=== PATIENT | female | born 1985 | race Caucasian/White ===

== ENCOUNTER 2017-07-23 07:04 | Inpatient (IN) | payer MEDICAID ==
[~2017-07-23] VITALS: Ht 160 cm; Wt 59.3 kg
[~2017-07-23 07:04] MED LIST: INSU100C5 SQ-INSULIN; INSULIN LONG ACTING SQ; LONG ACTING INSULIN; METF500T9 PO; NPH,100V5 SC; [UNRECOGNIZED DRUG - CODE] SC
[2017-07-23] MEDS ORDERED: ONDANSETRON 2MG/ML, 2ML IVPush ONE ×2 (07:30→08:30)
[2017-07-23] MEDS ORDERED: SODIUM CHLORIDE FLUSH 10ML SYR IVF ONE (07:30)
[2017-07-23] MEDS ORDERED: SODIUM CHLORIDE 0.9% 1,000ML IVBOLUS ONE ×2 (07:30→08:30)
[2017-07-23 07:45] LABS: HEMATOCRIT 49.1 % (34.6-47.8); HEMOGLOBIN 16.2 g/dL (11.7-16.4); WHITE BLOOD COUNT 10.8 x10^3/uL (3.4-10)
[2017-07-23] MEDS ORDERED: ONDANSETRON 2MG/ML, 2ML ONE ×2 (07:48→09:37)
[2017-07-23 07:53] LABS: FIO2 ROOM AIR %
[2017-07-23 07:55] LABS: PH, VENOUS 7.038 pH (7.320-7.420)
[2017-07-23 07:57] LABS: BLOOD UREA NITROGEN 15 mg/dL (7-18)
[2017-07-23] MEDS ORDERED: INSU100V8 SQ (08:10)
[2017-07-23] MEDS ORDERED: INSU100I18 SQ-INSULIN (08:12)
[2017-07-23] MEDS ORDERED: SODIUM CHLORIDE 0.9% 1,000 ML IV ONE (09:25)
[2017-07-23] MEDS ORDERED: REGULAR INSULIN 62.5 UNITS in SODIUM CHLORIDE 0.9% 249.375 ML IV PRN (09:30)
[2017-07-23] MEDS ORDERED: SODIUM CHLORIDE FLUSH 10ML SYR IVF PRN (09:30)
[2017-07-23 10:31] LABS: PATH.CAST-FLAG NOT PRESENT; SPERM-FLAG NOT PRESENT; SRC-FLAG NOT PRESENT; XTAL-FLAG NOT PRESENT; YLC-FLAG NOT PRESENT
[2017-07-23] MEDS ORDERED: POLYETHYLENE GLYCOL 17 GM PACKET PO PRN (11:30)
[2017-07-23] MEDS ORDERED: ONDANSETRON 2MG/ML, 2ML IVPush PRN (11:30)
[2017-07-23] MEDS ORDERED: DOCUSATE 100 MG CAPSULE PO PRN (11:30)
[2017-07-23] MEDS: SODIUM CHLORIDE 0.9% 1,000 ML IV SCH ×2 (11:30→18:10)
[2017-07-23] MEDS ORDERED: BISACODYL 10 MG SUPP PR PRN (11:30)
[2017-07-23] MEDS: ACETAMINOPHEN 325 MG TABLET PO PRN ×2 (11:37→19:47)
[2017-07-23] MEDS: ENOXAPARIN 40 MG/0.4 ML SQ SCH (12:25)
[2017-07-23] MEDS: FAMOTIDINE 20 MG/2 ML IVPush SCH ×2 (12:25→21:41)
[2017-07-23 12:40] LABS: BLOOD UREA NITROGEN 14 mg/dL (7-18)
[2017-07-23 13:11] VITALS: BP 116/88
[2017-07-23] MEDS: D5%-0.45% NACL 1,000 ML IV PRN ×2 (14:00→21:40)
[2017-07-23] MEDS ORDERED: D5%-0.45% NACL 1,000 ML IV PRN (14:00)
[2017-07-23 15:41] LABS: BLOOD UREA NITROGEN 11 mg/dL (7-18)
[2017-07-23] MEDS ORDERED: KETOROLAC 30 MG/1 ML IV ONE (16:00)
[2017-07-23 19:51] LABS: BLOOD UREA NITROGEN 8 mg/dL (7-18)
[2017-07-23] MEDS: REGULAR INSULIN 62.5 UNITS in SODIUM CHLORIDE 0.9% 249.375 ML IV PRN (21:40)
[2017-07-24 00:19] LABS: BLOOD UREA NITROGEN 9 mg/dL (7-18)
[2017-07-24] MEDS: SODIUM CHLORIDE 0.9% 1,000 ML IV SCH (00:50)
[2017-07-24 04:08] LABS: BLOOD UREA NITROGEN 7 mg/dL (7-18)
[2017-07-24 07:24] VITALS: BP 102/72
[2017-07-24 08:30] LABS: BLOOD UREA NITROGEN 6 mg/dL (7-18)
[2017-07-24] MEDS: ENOXAPARIN 40 MG/0.4 ML SQ SCH (11:30)
[2017-07-24] MEDS: ASA/APAP/ CAFFEINE TABLET PO PRN ×2 (12:03→17:46)
[2017-07-24] MEDS ORDERED: D5%-0.45% NACL 1,000 ML IV PRN (14:00)
[2017-07-24] MEDS ORDERED: POLYETHYLENE GLYCOL 17 GM PACKET PO PRN (15:30)
[2017-07-24] MEDS ORDERED: DOCUSATE 100 MG CAPSULE PO PRN (15:30)
[2017-07-24] MEDS ORDERED: BISACODYL 10 MG SUPP PR PRN (15:30)
[2017-07-24] MEDS ORDERED: ACETAMINOPHEN 325 MG TABLET PO PRN (15:30)
[2017-07-24] MEDS ORDERED: ONDANSETRON 2MG/ML, 2ML IVPush PRN (15:30)
[2017-07-24 16:59] LABS: BLOOD UREA NITROGEN 4 mg/dL (7-18)
[2017-07-24] MEDS ORDERED: POTASSIUM PHOSPHATE 44 MEQ in SODIUM CHLORIDE 0.9% 500 ML IV SCH (17:30)
[2017-07-24] MEDS ORDERED: MAGNESIUM SULFATE PMX 4GM/100M 100 ML IV ONE (17:30)
[2017-07-24] MEDS: FAMOTIDINE 20 MG/2 ML IVPush SCH ×2 (17:40→21:27)
[2017-07-24 21:06] LABS: BLOOD UREA NITROGEN 4 mg/dL (7-18)
[2017-07-25 04:00] VITALS: BP 102/81
[2017-07-25] MEDS: REGULAR INSULIN 62.5 UNITS in SODIUM CHLORIDE 0.9% 249.375 ML IV PRN (04:08)
[2017-07-25 04:24] LABS: HEMATOCRIT 34.9 % (34.6-47.8); HEMOGLOBIN 11.9 g/dL (11.7-16.4); WHITE BLOOD COUNT 6.3 x10^3/uL (3.4-10)
[2017-07-25 04:34] LABS: BLOOD UREA NITROGEN 3 mg/dL (7-18)
[2017-07-25 08:00] VITALS: BP 110/64
[2017-07-25] MEDS: INSULIN ASPART 100 UNITS/ML, PEN SQ-INSULIN SCH ×4 (10:15→20:33)
[2017-07-25] MEDS: POTASSIUM CHLORIDE 20 MEQ TAB.ER.PRT PO SCH ×2 (10:51→16:22)
[2017-07-25] MEDS: INSULIN DETEMIR 100 UNITS/ML, PEN SQ-INSULIN SCH ×2 (10:52→20:32)
[2017-07-25] MEDS: ASA/APAP/ CAFFEINE TABLET PO PRN ×4 (10:52→23:02)
[2017-07-25] MEDS: ENOXAPARIN 40 MG/0.4 ML SQ SCH (11:30)
[2017-07-25 12:33] VITALS: BP 108/71
[2017-07-25 19:41] VITALS: BP 107/74
[2017-07-26 00:51] VITALS: BP 98/65
[2017-07-26 07:58] VITALS: BP 101/68
[2017-07-26 08:05] LABS: BLOOD UREA NITROGEN 4 mg/dL (7-18)
[2017-07-26] MEDS: INSULIN ASPART 100 UNITS/ML, PEN SQ-INSULIN SCH ×2 (08:26→12:16)
[2017-07-26] MEDS: ASA/APAP/ CAFFEINE TABLET PO PRN (08:38)
[2017-07-26] MEDS ORDERED: INSULIN DETEMIR 100 UNITS/ML, PEN SQ-INSULIN SCH ×2 (09:00→20:00)
[2017-07-26] MEDS: ENOXAPARIN 40 MG/0.4 ML SQ SCH (11:30)
[2017-07-26 13:15] VITALS: BP 102/70
[2017-07-26] MEDS ORDERED: INSU100C SQ-INSULIN (13:19)
[2017-07-26] MEDS ORDERED: INSU100I28 SQ-INSULIN (13:19)
== END 2017-07-26 16:25 | disposition home or self-care (01) | DRG 639 ==
LOC: ED 08:27 → EDIP 09:25 → CCU 10:32 → 4WST 07-25 12:18 → DCLOUNGE 07-26 16:00
PROVIDERS: ADMIT Hospitalist; ATTEND Hospitalist
DX: E10.10 Type 1 diabetes mellitus with ketoacidosis without coma (principal); E86.0 Dehydration; F17.200 Nicotine dependence, unspecified, uncomplicated; Z71.6 Tobacco abuse counseling
CPT/HCPCS: 36415; 80048; 80053; 81001; 82010; 82040; 82803; 82962; 83036; 83735; 84100; 84703; 85025; 87081; 87086; 87147; 93005; 96361; 96374; 96375; 96376; J1650; J1815; J1885; J2405; J3475; J7030; J7040; J7050; S0028

== ENCOUNTER 2017-11-12 12:52 | Emergency (ER) | payer MEDICAID ==
[~2017-11-12] VITALS: Ht 160 cm; Wt 65.6 kg
[~2017-11-12 12:52] MED LIST changes: +INSU100C SQ-INSULIN; +INSU100I18 SQ-INSULIN; +INSU100I28 SQ-INSULIN; +INSU100V8 SQ
[2017-11-12 12:58] VITALS: BP 135/90
[2017-11-12] MEDS ORDERED: HYDROcodone/APAP 5/325 TABLET ONE (13:22)
[2017-11-12] MEDS ORDERED: HYDROcodone/APAP 5/325 TABLET PO ONE (13:30)
== END 2017-11-12 13:51 | disposition home or self-care (01) ==
LOC: ED 13:41
DX: K08.89 Other specified disorders of teeth and supporting structures (principal); E11.10 Type 2 diabetes mellitus with ketoacidosis without coma; Z79.4 Long term (current) use of insulin
CPT/HCPCS: 99283

== ENCOUNTER 2018-01-23 14:37 | Inpatient (IN) | payer MEDICAID ==
[~2018-01-23] VITALS: Ht 160 cm; Wt 58.7 kg
[2018-01-23] MEDS ORDERED: ONDANSETRON 2MG/ML, 2ML IVPush PRN (15:30)
[2018-01-23] MEDS ORDERED: SODIUM CHLORIDE 0.9% 1,000ML IVBOLUS ONE ×2 (15:30→16:00)
[2018-01-23] MEDS ORDERED: ONDANSETRON ODT 4 MG PO ONE (15:30)
[2018-01-23] MEDS ORDERED: ONDANSETRON 2MG/ML, 2ML IVPush ONE ×2 (15:30)
[2018-01-23 15:48] LABS: PH, VENOUS 7.119 pH (7.320-7.420)
[2018-01-23 15:55] LABS: BASOPHILS # (AUTO) 0.08 x10^3/uL (0-0.1); BASOPHILS % (AUTO) 1 % (0-1); EOSINOPHILS # (AUTO) 0.11 x10^3/uL (0-0.4); EOSINOPHILS % (AUTO) 1 % (1-7); LYMPHOCYTES # (AUTO) 2.09 x10^3/uL (1-3.4); LYMPHOCYTES % (AUTO) 21 % (22-44); MD NO; MEAN CORPUSCULAR HEMOGLOBIN 30.4 pg (27.0-34.8); MEAN CORPUSCULAR HGB CONC 33.1 g/dL (32.4-35.8); MEAN CORPUSCULAR VOLUME 91.9 fL (80-100); MEAN PLATELET VOLUME 8.4 fL (7.4-10.4); MONOCYTES # (AUTO) 0.41 x10^3/uL (0.2-0.8); MONOCYTES % (AUTO) 4 % (2-9); NEUTROPHILS % (AUTO) 73 % (42-75); PLATELET COUNT 404 x10^3/uL (130-400); RED BLOOD COUNT 5.45 x10^6/uL (3.82-5.3); RED CELL DISTRIBUTION WIDTH 13.4 % (9.6-15.2)
[2018-01-23] MEDS ORDERED: REGULAR INSULIN 62.5 UNITS in SODIUM CHLORIDE 0.9% 249.375 ML IV PRN ×2 (15:55→16:30)
[2018-01-23] MEDS ORDERED: INSU300I INJ (15:58)
[2018-01-23 16:01] LABS: ANION GAP 23 mmol/L (5-15); CALCIUM 9.7 mg/dL (8.5-10.1); CHLORIDE 99 mmol/L (98-107)
[2018-01-23 16:05] LABS: ALANINE AMINOTRANSFERASE 27 U/L (12-78); ALKALINE PHOSPHATASE 159 U/L (45-117); BILIRUBIN,TOTAL 0.6 mg/dL (0.2-1.0); CREATININE 0.97 mg/dL (0.55-1.02); TOTAL PROTEIN 10.4 g/dL (6.4-8.2)
[2018-01-23] MEDS ORDERED: ONDANSETRON 2MG/ML, 2ML ONE (16:07)
[2018-01-23] MEDS ORDERED: MORPHINE SULFATE 4 MG/ML, 1ML ONE (16:07)
[2018-01-23 16:17] LABS: ACETONE, SERUM Large (80mg/dL) mg/dL (Negative)
[2018-01-23] MEDS: SODIUM CHLORIDE 0.9% 1,000 ML IV SCH ×2 (16:22→19:13)
[2018-01-23] MEDS ORDERED: LABETALOL 5MG/ML, 20ML IVPush PRN (16:30)
[2018-01-23] MEDS ORDERED: TEMAZEPAM 15 MG CAPSULE PO PRN (16:30)
[2018-01-23] MEDS ORDERED: ONDANSETRON ODT 4 MG PO PRN (16:30)
[2018-01-23] MEDS ORDERED: MORPHINE SULFATE 4 MG/ML, 1ML IVPush ONE (16:30)
[2018-01-23] MEDS ORDERED: PROMETHAZINE 25 MG/ML, 1ML IM PRN (16:30)
[2018-01-23] MEDS ORDERED: ACETAMINOPHEN 325 MG TABLET PO PRN (16:30)
[2018-01-23] MEDS ORDERED: POLYETHYLENE GLYCOL 17 GM PACKET PO PRN (16:30)
[2018-01-23 16:43] LABS: MICROSCOPIC AUTO
[2018-01-23] MEDS: D5%-0.45NACL+KCL 20MEQ 1,000 ML IV SCH ×2 (17:00→20:20)
[2018-01-23 17:02] LABS: HEMOGLOBIN A1C 11.6 % (4.2-6.3)
[2018-01-23 17:05] LABS: CULTURE INDICATED? NO
[2018-01-23] MEDS: ENOXAPARIN 40 MG/0.4 ML SQ SCH (17:27)
[2018-01-23 19:06] VITALS: BP 104/74
[2018-01-23 20:39] LABS: ANION GAP 17 mmol/L (5-15); CALCIUM 8.3 mg/dL (8.5-10.1); CHLORIDE 110 mmol/L (98-107); CREATININE 0.75 mg/dL (0.55-1.02)
[2018-01-24 00:46] LABS: ANION GAP 10 mmol/L (5-15); CALCIUM 7.5 mg/dL (8.5-10.1); CHLORIDE 115 mmol/L (98-107); CREATININE 0.74 mg/dL (0.55-1.02)
[2018-01-24] MEDS: SODIUM CHLORIDE 0.9% 1,000 ML IV SCH ×2 (00:53→06:42)
[2018-01-24] MEDS: D5%-0.45NACL+KCL 20MEQ 1,000 ML IV SCH ×3 (02:16→22:34)
[2018-01-24] MEDS: OXYcodone IR 5MG TABLET PO PRN ×4 (03:42→21:29)
[2018-01-24 04:20] VITALS: BP 109/74
[2018-01-24 04:55] LABS: ALANINE AMINOTRANSFERASE 20 U/L (12-78); ALBUMIN 3.7 g/dL (3.4-5.0); ANION GAP 13 mmol/L (5-15); CALCIUM 8.3 mg/dL (8.5-10.1); CHLORIDE 114 mmol/L (98-107)
[2018-01-24 05:01] LABS: ALKALINE PHOSPHATASE 112 U/L (45-117); BILIRUBIN,TOTAL 0.2 mg/dL (0.2-1.0); CHOL/HDL RATIO 3.9; CHOLESTEROL, TOTAL 194 mg/dL (140-239); CREATININE 0.76 mg/dL (0.55-1.02); HDL CHOL % 26 % (28-40); HDL CHOLESTEROL (DIRECT) 50 mg/dL (40-60); LDL CHOLESTEROL,CALCULATED 71 mg/dL (54-169); TOTAL PROTEIN 7.5 g/dL (6.4-8.2); TRIGLYCERIDES 366 mg/dL (50-200); VLDL CHOLESTEROL 73 mg/dL (0-25)
[2018-01-24 05:02] LABS: LDL/HDL RATIO 1.4 (0.5-3.0)
[2018-01-24 05:03] LABS: BASOPHILS # (AUTO) 0.05 x10^3/uL (0-0.1); BASOPHILS % (AUTO) 1 % (0-1); EOSINOPHILS # (AUTO) 0.28 x10^3/uL (0-0.4); EOSINOPHILS % (AUTO) 3 % (1-7); LYMPHOCYTES # (AUTO) 3.75 x10^3/uL (1-3.4); LYMPHOCYTES % (AUTO) 45 % (22-44); MD NO; MEAN CORPUSCULAR HEMOGLOBIN 30.7 pg (27.0-34.8); MEAN CORPUSCULAR HGB CONC 33.7 g/dL (32.4-35.8); MEAN PLATELET VOLUME 7.9 fL (7.4-10.4); MONOCYTES % (AUTO) 11 % (2-9); NEUTROPHILS # (AUTO) 3.41 x10^3/uL (1.8-6.8); NEUTROPHILS % (AUTO) 41 % (42-75); PLATELET COUNT 369 x10^3/uL (130-400); RED BLOOD COUNT 4.41 x10^6/uL (3.82-5.3); RED CELL DISTRIBUTION WIDTH 13.9 % (9.6-15.2)
[2018-01-24] MEDS ORDERED: SODIUM PHOSPHATE 20 MMOL in SODIUM CHLORIDE 0.9% 500 ML IV ONE (07:30)
[2018-01-24 08:34] LABS: ANION GAP 13 mmol/L (5-15); CALCIUM 7.7 mg/dL (8.5-10.1); CHLORIDE 114 mmol/L (98-107); CREATININE 0.61 mg/dL (0.55-1.02)
[2018-01-24] MEDS: SENNA/DOCUSATE TABLET PO SCH (09:00)
[2018-01-24 12:18] LABS: ANION GAP 12 mmol/L (5-15); CALCIUM 7.9 mg/dL (8.5-10.1); CHLORIDE 115 mmol/L (98-107); CREATININE 0.62 mg/dL (0.55-1.02)
[2018-01-24 16:06] LABS: ANION GAP 12 mmol/L (5-15); CALCIUM 7.9 mg/dL (8.5-10.1); CHLORIDE 115 mmol/L (98-107); CREATININE 0.57 mg/dL (0.55-1.02)
[2018-01-24] MEDS: ENOXAPARIN 40 MG/0.4 ML SQ SCH (18:19)
[2018-01-24 20:16] LABS: ANION GAP 12 mmol/L (5-15); CALCIUM 8.4 mg/dL (8.5-10.1); CHLORIDE 115 mmol/L (98-107); CREATININE 0.62 mg/dL (0.55-1.02)
[2018-01-25 00:34] LABS: ANION GAP 9 mmol/L (5-15); CALCIUM 7.8 mg/dL (8.5-10.1); CHLORIDE 118 mmol/L (98-107); CREATININE 0.49 mg/dL (0.55-1.02)
[2018-01-25 04:22] VITALS: BP 91/55
[2018-01-25 04:38] LABS: ANION GAP 10 mmol/L (5-15); CALCIUM 8.2 mg/dL (8.5-10.1); CHLORIDE 115 mmol/L (98-107); CREATININE 0.48 mg/dL (0.55-1.02)
[2018-01-25] MEDS: D5%-0.45NACL+KCL 20MEQ 1,000 ML IV SCH (05:00)
[2018-01-25] MEDS: OXYcodone IR 5MG TABLET PO PRN ×4 (08:29→22:43)
[2018-01-25 08:36] LABS: ANION GAP 11 mmol/L (5-15); CALCIUM 8.6 mg/dL (8.5-10.1); CHLORIDE 114 mmol/L (98-107); CREATININE 0.72 mg/dL (0.55-1.02)
[2018-01-25] MEDS: SENNA/DOCUSATE TABLET PO SCH (08:58)
[2018-01-25] MEDS: INSULIN LISPRO 100 UNITS/ML, PEN SQ-INSULIN SCH ×3 (10:56→20:40)
[2018-01-25] MEDS: INSULIN GLARGINE 100 UNITS/ML, PEN SQ-INSULIN SCH ×2 (10:56→20:41)
[2018-01-25] MEDS: SODIUM CHLORIDE 0.45% 1,000 ML IV SCH ×2 (10:57→20:27)
[2018-01-25 12:21] LABS: CHLORIDE 113 mmol/L (98-107)
[2018-01-25 12:26] LABS: ANION GAP 10 mmol/L (5-15); CALCIUM 8.7 mg/dL (8.5-10.1); CREATININE 0.49 mg/dL (0.55-1.02)
[2018-01-25] MEDS: ENOXAPARIN 40 MG/0.4 ML SQ SCH (16:43)
[2018-01-25 19:05] VITALS: BP 97/63
[2018-01-26 02:46] VITALS: BP 101/68
[2018-01-26] MEDS: OXYcodone IR 5MG TABLET PO PRN ×2 (02:49→06:40)
[2018-01-26 05:29] LABS: ANION GAP 8 mmol/L (5-15); CALCIUM 8.2 mg/dL (8.5-10.1); CHLORIDE 113 mmol/L (98-107); CREATININE 0.51 mg/dL (0.55-1.02)
[2018-01-26] MEDS: INSULIN LISPRO 100 UNITS/ML, PEN SQ-INSULIN SCH (07:00)
[2018-01-26] MEDS ORDERED: POTASSIUM CHLORIDE 20 MEQ TAB.ER.PRT PO ONE (07:30)
[2018-01-26 08:12] VITALS: BP 100/66
[2018-01-26] MEDS: SENNA/DOCUSATE TABLET PO SCH (09:13)
[2018-01-26] MEDS: INSULIN GLARGINE 100 UNITS/ML, PEN SQ-INSULIN SCH (09:14)
[2018-01-26 09:35] VITALS: BP 106/70
[2018-01-26] MEDS: SODIUM CHLORIDE 0.45% 1,000 ML IV SCH (10:00)
== END 2018-01-26 09:54 | disposition home or self-care (01) | DRG 638 ==
LOC: ED 16:13 → EDIP 16:14 → ED 16:32 → CCU 17:02 → 4NOR 01-25 14:48 → DCLOUNGE 01-26 09:48
PROVIDERS: ADMIT Internal Medicine; ATTEND Internal Medicine
DX: E11.10 Type 2 diabetes mellitus with ketoacidosis without coma (principal); E87.1 Hypo-osmolality and hyponatremia; F17.210 Nicotine dependence, cigarettes, uncomplicated; G43.909 Migraine, unspecified, not intractable, without status migrainosus; Z88.1 Allergy status to other antibiotic agents; Z88.0 Allergy status to penicillin; Z83.3 Family history of diabetes mellitus; Z83.49 Family history of other endocrine, nutritional and metabolic diseases
CPT/HCPCS: 36415; 71045; 80048; 80053; 80061; 81001; 82010; 82803; 82962; 83036; 83690; 83735; 84100; 84443; 85025; 87081; 93005; 96361; 96374; 96375; J1650; J1815; J2405; Q0162; J3480; J7030; J7040; J7050

== ENCOUNTER 2018-03-16 16:14 | Emergency (ER) | payer MEDICAID ==
[~2018-03-16] VITALS: Ht 160 cm; Wt 60.0 kg
[~2018-03-16 16:14] MED LIST changes: +INSU300I INJ
[2018-03-16] MEDS ORDERED: SODIUM CHLORIDE 0.9% 1,000ML IVBOLUS ONE (16:30)
[2018-03-16] MEDS ORDERED: PROCHLORPERAZINE 5 MG/ML, 2ML IVPush ONE (16:30)
[2018-03-16] MEDS ORDERED: KETOROLAC 30 MG/1 ML IVPush ONE (16:30)
[2018-03-16] MEDS ORDERED: DIPHENHYDRAMINE 50 MG/ML, 1ML IVPush ONE (16:30)
[2018-03-16] MEDS ORDERED: SODIUM CHLORIDE FLUSH 10ML SYR IVF ONE (16:30)
[2018-03-16] MEDS ORDERED: DIPHENHYDRAMINE 50 MG/ML, 1ML ONE (17:14)
[2018-03-16] MEDS ORDERED: PROCHLORPERAZINE 5 MG/ML, 2ML ONE (17:15)
[2018-03-16] MEDS ORDERED: KETOROLAC 30 MG/1 ML ONE (17:15)
[2018-03-16 17:31] LABS: BASOPHILS # (AUTO) 0.23 x10^3/uL (0-0.1); BASOPHILS % (AUTO) 2 % (0-1); EOSINOPHILS # (AUTO) 0.11 x10^3/uL (0-0.4); EOSINOPHILS % (AUTO) 1 % (1-7); LYMPHOCYTES # (AUTO) 2.13 x10^3/uL (1-3.4); LYMPHOCYTES % (AUTO) 17 % (22-44); MD NO; MEAN CORPUSCULAR HEMOGLOBIN 29.8 pg (27.0-34.8); MEAN CORPUSCULAR HGB CONC 33.6 g/dL (32.4-35.8); MEAN CORPUSCULAR VOLUME 88.9 fL (80-100); MEAN PLATELET VOLUME 7.5 fL (7.4-10.4); MONOCYTES # (AUTO) 1.04 x10^3/uL (0.2-0.8); MONOCYTES % (AUTO) 8 % (2-9); NEUTROPHILS # (AUTO) 9.08 x10^3/uL (1.8-6.8); NEUTROPHILS % (AUTO) 72 % (42-75); PLATELET COUNT 425 x10^3/uL (130-400); RED BLOOD COUNT 4.15 x10^6/uL (3.82-5.3); RED CELL DISTRIBUTION WIDTH 13.1 % (9.6-15.2)
[2018-03-16 17:41] LABS: ALBUMIN 3.5 g/dL (3.4-5.0); ANION GAP 7 mmol/L (5-15); CALCIUM 8.8 mg/dL (8.5-10.1); CHLORIDE 111 mmol/L (98-107); CREATININE 0.57 mg/dL (0.55-1.02)
[2018-03-16 18:13] LABS: ACETONE, SERUM Small (20mg/dL) mg/dL (Negative)
[2018-03-16] MEDS ORDERED: POTASSIUM CHLORIDE 20 MEQ TAB.ER.PRT ONE (18:18)
[2018-03-16 18:20] VITALS: BP 102/59
[2018-03-16] MEDS ORDERED: POTASSIUM CHLORIDE 20 MEQ TAB.ER.PRT PO ONE (18:30)
== END 2018-03-16 18:29 | disposition home or self-care (01) ==
LOC: ED 18:23
DX: G43.009 Migraine without aura, not intractable, without status migrainosus (principal); E87.6 Hypokalemia; E11.65 Type 2 diabetes mellitus with hyperglycemia; E11.10 Type 2 diabetes mellitus with ketoacidosis without coma; H53.419 Scotoma involving central area, unspecified eye
CPT/HCPCS: 36415; 80048; 82010; 82040; 85025; 93005; 96361; 96374; 96375; 99285; J0780; J1200; J1885; J7030

== ENCOUNTER 2018-11-13 17:19 | Inpatient (IN) | payer MEDICAID ==
[~2018-11-13] VITALS: Ht 157.5 cm; Wt 48.5 kg
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
[2018-11-13] MEDS ORDERED: INSU100V8 SQ (17:45)
[2018-11-13] MEDS ORDERED: SODIUM CHLORIDE 0.9% 1,000ML IVBOLUS ONE ×2 (18:00→19:30)
--- NOTE | 2018-11-13 18:09 | NUR ---
Patient does not want visits from Tobi (boyfried) or Daniela (Tobi's mother).
[2018-11-13 18:28] LABS: BASOPHILS # (AUTO) 0.08 x10^3/uL (0-0.1); BASOPHILS % (AUTO) 1 % (0-1); EOSINOPHILS # (AUTO) 0.01 x10^3/uL (0-0.4); EOSINOPHILS % (AUTO) 0 % (1-7); LYMPHOCYTES # (AUTO) 1.68 x10^3/uL (1-3.4); LYMPHOCYTES % (AUTO) 17 % (22-44); MD NO; MEAN CORPUSCULAR HEMOGLOBIN 31.9 pg (27.0-34.8); MEAN CORPUSCULAR HGB CONC 34.1 g/dL (32.4-35.8); MEAN CORPUSCULAR VOLUME 93.4 fL (80-100); MONOCYTES # (AUTO) 0.46 x10^3/uL (0.2-0.8); MONOCYTES % (AUTO) 5 % (2-9); NEUTROPHILS # (AUTO) 7.49 x10^3/uL (1.8-6.8); NEUTROPHILS % (AUTO) 77 % (42-75); PLATELET COUNT 357 x10^3/uL (130-400); RED BLOOD COUNT 4.03 x10^6/uL (3.82-5.3); RED CELL DISTRIBUTION WIDTH 12.6 % (9.6-15.2)
[2018-11-13 18:30] LABS: O2 FLOW ROOM AIR L/min
--- NOTE | 2018-11-13 18:31 | NUR ---
Patient resting in gurney and appears to be in less distress.
[2018-11-13 18:34] LABS: ACETONE, SERUM Large (80mg/dL) mg/dL (Negative)
[2018-11-13 18:41] LABS: ALANINE AMINOTRANSFERASE 38 U/L (12-78); ALBUMIN 3.4 g/dL (3.4-5.0); ANION GAP 26 mmol/L (5-15); CHLORIDE 101 mmol/L (98-107); CREATININE 0.71 mg/dL (0.55-1.02)
[2018-11-13 18:45] LABS: ALKALINE PHOSPHATASE 109 U/L (45-117); BILIRUBIN,TOTAL 0.5 mg/dL (0.2-1.0); TOTAL PROTEIN 6.8 g/dL (6.4-8.2)
[2018-11-13] MEDS ORDERED: REGULAR INSULIN 62.5 UNITS in SODIUM CHLORIDE 0.9% 249.375 ML IV PRN ×2 (18:55→19:49)
[2018-11-13 19:10] LABS: MICROSCOPIC NOT IND
[2018-11-13 19:14] LABS: CULTURE INDICATED? NO
--- NOTE | 2018-11-13 19:19 | NUR ---
ALYSSIA BURRELL. INSULIN DRIP ORDER VERIFIED WITH DR. FERRER AND THEN WITH ALVARO BURRELL AT BEDSIDE.
--- NOTE | 2018-11-13 19:22 | NUR ---
Insulin hung and verified with ASHANTI Cuevas. [facility] at bedside evaluating patient.
[2018-11-13] MEDS ORDERED: SODIUM CHLORIDE 0.9% 1,000 ML IV SCH (19:50)
[2018-11-13] MEDS ORDERED: ONDANSETRON ODT 4 MG PO PRN (20:00)
[2018-11-13] MEDS ORDERED: morphine SULFATE 10 MG/ML, 1ML IVPush PRN (20:00)
[2018-11-13] MEDS ORDERED: ONDANSETRON 2MG/ML, 2ML IVPush PRN (20:00)
[2018-11-13] MEDS ORDERED: DOCUSATE 100 MG CAPSULE PO PRN (20:00)
[2018-11-13] MEDS ORDERED: BISACODYL 10 MG SUPP PR PRN (20:00)
[2018-11-13] MEDS ORDERED: POLYETHYLENE GLYCOL 17 GM PACKET PO PRN (20:00)
[2018-11-13] MEDS ORDERED: PROMETHAZINE 25 MG/ML, 1ML IM PRN (20:00)
--- NOTE | 2018-11-13 20:17 | NUR ---
FSBS = 439. Verified insulin dose with Ellen Skelton RN. No change in dose at this time.
[2018-11-13 20:20] LABS: FREE T4 (FREE THYROXINE) 0.99 ng/dL (0.76-1.46); THYROID STIMULATING HORMONE 0.421 mIU/L (0.358-3.740)
[2018-11-13 20:24] LABS: HEMOGLOBIN A1C 14.2 % (4.2-6.3)
[2018-11-13] MEDS ORDERED: FAMOTIDINE 20 MG/2 ML ONE (20:33)
[2018-11-13] MEDS ORDERED: HEPARIN 5,000 UNITS/ML, 1ML ONE (20:33)
[2018-11-13] MEDS: FAMOTIDINE 20 MG/2 ML IVPush SCH (20:35)
[2018-11-13] MEDS: HEPARIN 5,000 UNITS/ML, 1ML SQ SCH (20:35)
[2018-11-13] MEDS ORDERED: PHENYLEPHRINE NASAL 1%, 15ML SPRAY ONE (21:18)
--- NOTE | 2018-11-13 21:18 | NUR ---
FSBS = 332. No change in insulin infusion rate.
--- NOTE | 2018-11-13 21:21 | NUR ---
Report to ASHANTI Hughes.
--- NOTE | 2018-11-13 21:27 | NUR ---
REPORT FROM BARBARA, ASSUMED CARE OF PT AT THIS TIME, PT IS AWAITING ICU BED AT THIS TIME
[2018-11-13 22:12] LABS: ANION GAP 18 mmol/L (5-15); CALCIUM 7.4 mg/dL (8.5-10.1); CHLORIDE 114 mmol/L (98-107); CREATININE 0.61 mg/dL (0.55-1.02)
--- NOTE | 2018-11-13 23:35 | NUR ---
REPORT TO ANGIE, PT BS 202, NO CHANGE IN INSULIN GTT, OR IVF AT THIS TIME
[2018-11-13 23:45] VITALS: BP 88/45
[2018-11-13] MEDS: OXYcodone IR 5MG TABLET PO PRN (23:54)
[2018-11-14] MEDS: D5%-0.45% NACL 1,000 ML IV PRN ×2 (00:01→06:25)
[2018-11-14] MEDS: OXYcodone IR 5MG TABLET PO PRN (04:13)
[2018-11-14] MEDS: HEPARIN 5,000 UNITS/ML, 1ML SQ SCH (04:14)
[2018-11-14 04:20] VITALS: BP 96/63
[2018-11-14 04:24] LABS: BASOPHILS # (AUTO) 0.11 x10^3/uL (0-0.1); BASOPHILS % (AUTO) 1 % (0-1); EOSINOPHILS % (AUTO) 2 % (1-7); LYMPHOCYTES # (AUTO) 4.49 x10^3/uL (1-3.4); LYMPHOCYTES % (AUTO) 49 % (22-44); MD NO; MEAN CORPUSCULAR HEMOGLOBIN 32.3 pg (27.0-34.8); MEAN CORPUSCULAR HGB CONC 34.8 g/dL (32.4-35.8); MEAN CORPUSCULAR VOLUME 92.9 fL (80-100); MEAN PLATELET VOLUME 7.5 fL (7.4-10.4); MONOCYTES # (AUTO) 0.68 x10^3/uL (0.2-0.8); MONOCYTES % (AUTO) 7 % (2-9); NEUTROPHILS # (AUTO) 3.76 x10^3/uL (1.8-6.8); NEUTROPHILS % (AUTO) 41 % (42-75); PLATELET COUNT 345 x10^3/uL (130-400); RED BLOOD COUNT 3.71 x10^6/uL (3.82-5.3); RED CELL DISTRIBUTION WIDTH 12.6 % (9.6-15.2)
[2018-11-14 04:38] LABS: CHLORIDE 114 mmol/L (98-107)
[2018-11-14 04:44] LABS: ANION GAP 8 mmol/L (5-15); CHOL/HDL RATIO 3.6; CHOLESTEROL, TOTAL 207 mg/dL (140-239); CREATININE 0.65 mg/dL (0.55-1.02); HDL CHOL % 28 % (28-40); HDL CHOLESTEROL (DIRECT) 57 mg/dL (40-60); LDL CHOLESTEROL,CALCULATED 103 mg/dL (54-169); LDL/HDL RATIO 1.8 (0.5-3.0); TRIGLYCERIDES 234 mg/dL (50-200); VLDL CHOLESTEROL 47 mg/dL (0-25)
[2018-11-14] MEDS: FAMOTIDINE 20 MG/2 ML IVPush SCH ×2 (08:06→20:22)
[2018-11-14] MEDS ORDERED: MAGNESIUM SULFATE PMX 2GM/50ML 50 ML IV ONE (09:30)
[2018-11-14 09:53] LABS: ANION GAP 10 mmol/L (5-15); CALCIUM 8.4 mg/dL (8.5-10.1); CHLORIDE 115 mmol/L (98-107); CREATININE 0.63 mg/dL (0.55-1.02)
[2018-11-14] MEDS ORDERED: POTASSIUM CHLORIDE 20 MEQ TAB.ER.PRT PO ONE (10:30)
[2018-11-14] MEDS: ASA/APAP/ CAFFEINE TABLET PO PRN ×2 (11:11→18:47)
[2018-11-14] MEDS: D5%-0.45% NACL 1,000 ML IV SCH (12:00)
[2018-11-14] MEDS: ENOXAPARIN 40 MG/0.4 ML SQ SCH (13:23)
[2018-11-14 13:49] LABS: ANION GAP 10 mmol/L (5-15); CALCIUM 8.2 mg/dL (8.5-10.1); CHLORIDE 112 mmol/L (98-107)
[2018-11-14 17:27] LABS: ANION GAP 6 mmol/L (5-15); CALCIUM 7.9 mg/dL (8.5-10.1); CHLORIDE 115 mmol/L (98-107); CREATININE 0.59 mg/dL (0.55-1.02)
[2018-11-14] MEDS ORDERED: INSULIN GLARGINE 100 UNITS/ML, PEN SQ-INSULIN ONE (18:00)
[2018-11-14] MEDS: INSULIN LISPRO 100 UNITS/ML, PEN SQ-INSULIN SCH ×2 (18:48→20:22)
[2018-11-14] MEDS ORDERED: INSULIN LISPRO 100 UNITS/ML, PEN SQ-INSULIN SCH (19:00)
[2018-11-14 20:00] VITALS: BP 114/77
[2018-11-15] MEDS: INSULIN LISPRO 100 UNITS/ML, PEN SQ-INSULIN SCH ×2 (01:56→09:29)
[2018-11-15 02:00] VITALS: BP 103/70
[2018-11-15 05:44] LABS: ANION GAP 7 mmol/L (5-15); CALCIUM 8.1 mg/dL (8.5-10.1); CHLORIDE 117 mmol/L (98-107); CREATININE 0.47 mg/dL (0.55-1.02)
[2018-11-15] MEDS ORDERED: MAGNESIUM SULFATE PMX 2GM/50ML 50 ML IV ONE (06:00)
[2018-11-15] MEDS ORDERED: POTASSIUM PHOSPHATE 44 MEQ in SODIUM CHLORIDE 0.9% 500 ML IV ONE (06:00)
[2018-11-15] MEDS: D5%-0.45% NACL 1,000 ML IV SCH (06:43)
[2018-11-15 08:20] VITALS: BP 120/79
[2018-11-15] MEDS: FAMOTIDINE 20 MG/2 ML IVPush SCH (09:13)
[2018-11-15] MEDS: ENOXAPARIN 40 MG/0.4 ML SQ SCH (12:00)
[2018-11-15] MEDS ORDERED: INSU100V8 SQ (12:00)
[2018-11-15 12:49] VITALS: BP 111/76
== END 2018-11-15 13:16 | disposition home or self-care (01) | DRG 639 ==
LOC: ED 18:19 → EDIP 19:11 → ICU 23:28 → 3NW 11-14 19:33
PROVIDERS: ADMIT Internal Medicine; ATTEND Internal Medicine
DX: E10.10 Type 1 diabetes mellitus with ketoacidosis without coma (principal); F17.210 Nicotine dependence, cigarettes, uncomplicated; G43.909 Migraine, unspecified, not intractable, without status migrainosus; Z79.4 Long term (current) use of insulin; Z88.1 Allergy status to other antibiotic agents; Z88.0 Allergy status to penicillin
CPT/HCPCS: 36600; J3490; 71045; 80048; 80053; 80061; 81003; 82010; 82803; 82962; 83036; 83735; 84100; 84439; 84443; 84703; 85025; 87081; 93005; 96361; 96374; G0378; J1644; J1650; J1815; J3475; J7030; J7040; J7050

== ENCOUNTER 2019-10-11 08:15 | Inpatient (IN) | payer MEDICAID ==
[~2019-10-11] VITALS: Ht 157.5 cm; Wt 47.1 kg
[~2019-10-11 08:15] MED LIST changes: +METF500T12 PO; -METF500T9 PO
[2019-10-11] MEDS ORDERED: SODIUM CHLORIDE 0.9% 1,000ML IVBOLUS ONE ×2 (08:30→11:30)
[2019-10-11] MEDS ORDERED: SODIUM CHLORIDE FLUSH 10ML SYR IVF ONE (08:30)
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
--- NOTE | 2019-10-11 09:11 | NUR ---
UA COLLECTED. LAB AT BEDSIDE TO DRAW BLOOD. PT RESTING ON GURNEY. REMAINS TACHYCARDIC AT 145 BPM. HYPOTENSIVE AT 89/55. PLACED INTO [place] POSITION.
[2019-10-11 09:25] LABS: MICROSCOPIC AUTO
--- NOTE | 2019-10-11 09:28 | NUR ---
PER LAB, UNABLE TO DRAW ON PT.
[2019-10-11 09:33] LABS: CULTURE INDICATED? NO
--- NOTE | 2019-10-11 09:37 | NUR ---
LAB AT BEDSIDE NOW.
--- NOTE | 2019-10-11 09:59 | NUR ---
TASK RN: ASHANTI MAHAN BEDSIDE ATTEMPTING US GUIDED PIV. LAB BEDSIDE ALSO.
[2019-10-11 10:21] LABS: O2 FLOW ROOM AIR L/min; PH, VENOUS 7.153 pH (7.320-7.420)
[2019-10-11 10:22] LABS: BASOPHILS # (AUTO) 0.06 x10^3/uL (0-0.1); BASOPHILS % (AUTO) 1 % (0-1); EOSINOPHILS # (AUTO) 0.01 x10^3/uL (0-0.4); EOSINOPHILS % (AUTO) 0 % (1-7); LYMPHOCYTES # (AUTO) 1.66 x10^3/uL (1-3.4); LYMPHOCYTES % (AUTO) 15 % (22-44); MD NO; MEAN CORPUSCULAR HEMOGLOBIN 32.8 pg (27.0-34.8); MEAN CORPUSCULAR HGB CONC 33.1 g/dL (32.4-35.8); MEAN CORPUSCULAR VOLUME 99.2 fL (80-100); MEAN PLATELET VOLUME 7.9 fL (7.4-10.4); MONOCYTES # (AUTO) 0.64 x10^3/uL (0.2-0.8); MONOCYTES % (AUTO) 6 % (2-9); NEUTROPHILS # (AUTO) 8.95 x10^3/uL (1.8-6.8); NEUTROPHILS % (AUTO) 79 % (42-75); PLATELET COUNT 305 x10^3/uL (130-400); RED BLOOD COUNT 4.67 x10^6/uL (3.82-5.3); RED CELL DISTRIBUTION WIDTH 12.7 % (9.6-15.2)
[2019-10-11 10:33] LABS: ALANINE AMINOTRANSFERASE 95 U/L (12-78); ALBUMIN 4.4 g/dL (3.4-5.0); ANION GAP 27 mmol/L (5-15); CALCIUM 10.3 mg/dL (8.5-10.1); CHLORIDE 97 mmol/L (98-107); CREATININE 1.53 mg/dL (0.55-1.02)
[2019-10-11 10:37] LABS: ALKALINE PHOSPHATASE 209 U/L (45-117); BILIRUBIN,TOTAL 0.7 mg/dL (0.2-1.0); TOTAL PROTEIN 8.7 g/dL (6.4-8.2)
[2019-10-11] MEDS ORDERED: AMAN100C7 PO (10:44)
[2019-10-11] MEDS ORDERED: FAMO20TA7 PO (10:44)
[2019-10-11] MEDS ORDERED: METO25TA35 PO (10:44)
[2019-10-11] MEDS ORDERED: DIVA125T31 PO (10:44)
[2019-10-11] MEDS ORDERED: QUET25TA7 PO (10:44)
[2019-10-11] MEDS ORDERED: LORA-445 PO (10:44)
[2019-10-11] MEDS ORDERED: REGULAR INSULIN 62.5 UNITS in SODIUM CHLORIDE 0.9% 249.375 ML IV PRN ×2 (10:48→11:30)
--- NOTE | 2019-10-11 10:59 | NUR ---
2L NS HAVE FINISHED INFUSING. INSULIN DRIP ORDERED FROM PHARMACY. PT RESTING ON GURNEY. VSS. LESS TACHYCARDIC NOW AT 139. NO LONGER HYPOTENSIVE. TYLORN.
[2019-10-11 11:02] LABS: ACETONE, SERUM Large (80mg/dL) mg/dL (Negative)
--- NOTE | 2019-10-11 11:18 | NUR ---
REPORT GIVEN TO ASHANTI RODRIGUEZ.
[2019-10-11] MEDS ORDERED: SODIUM CHLORIDE 0.9% 1,000 ML IV SCH (11:27)
[2019-10-11] MEDS ORDERED: ACETAMINOPHEN 325 MG TABLET PO PRN (11:30)
[2019-10-11] MEDS ORDERED: ONDANSETRON 2MG/ML, 2ML IVPush PRN (11:30)
[2019-10-11] MEDS: D5%-0.45NACL+KCL 20MEQ 1,000 ML IV SCH ×3 (11:49→23:55)
[2019-10-11 12:16] LABS: HEMOGLOBIN A1C 8.4 % (4.2-6.3)
[2019-10-11 12:34] LABS: TROPONIN I < 0.015 ng/mL (0.000-0.045)
[2019-10-11 13:30] LABS: ANION GAP 20 mmol/L (5-15); CALCIUM 8.8 mg/dL (8.5-10.1); CHLORIDE 114 mmol/L (98-107)
[2019-10-11] MEDS: HEPARIN 5,000 UNITS/ML, 1ML SQ SCH ×2 (14:01→22:42)
[2019-10-11] MEDS: LEVOFLOXACIN/PMX 500MG/100ML 100 ML IV SCH (14:01)
[2019-10-11] MEDS: DIVALPROEX 125 MG TABLET.DR PO SCH ×2 (16:53→20:40)
[2019-10-11 17:28] LABS: ANION GAP 10 mmol/L (5-15); CALCIUM 8.5 mg/dL (8.5-10.1); CHLORIDE 122 mmol/L (98-107); CREATININE 0.96 mg/dL (0.55-1.02)
[2019-10-11 17:31] LABS: TROPONIN I 0.036 ng/mL (0.000-0.045)
[2019-10-11] MEDS: AMANTADINE 100 MG CAPSULE PO SCH (20:40)
[2019-10-11] MEDS: METOPROLOL TARTRATE 25 MG TABLET PO SCH (20:40)
[2019-10-11 23:21] LABS: ANION GAP 5 mmol/L (5-15); CALCIUM 9.1 mg/dL (8.5-10.1); CHLORIDE 121 mmol/L (98-107); CREATININE 1.07 mg/dL (0.55-1.02)
[2019-10-12 02:49] LABS: ANION GAP 8 mmol/L (5-15); CALCIUM 8.6 mg/dL (8.5-10.1); CHLORIDE 119 mmol/L (98-107); CREATININE 0.85 mg/dL (0.55-1.02)
[2019-10-12] MEDS: HEPARIN 5,000 UNITS/ML, 1ML SQ SCH (06:20)
[2019-10-12 07:04] LABS: ANION GAP 7 mmol/L (5-15); CHLORIDE 117 mmol/L (98-107); CREATININE 0.78 mg/dL (0.55-1.02)
[2019-10-12 08:14] LABS: BASOPHILS # (AUTO) 0.05 x10^3/uL (0-0.1); BASOPHILS % (AUTO) 1 % (0-1); EOSINOPHILS # (AUTO) 0.14 x10^3/uL (0-0.4); EOSINOPHILS % (AUTO) 2 % (1-7); LYMPHOCYTES # (AUTO) 2.28 x10^3/uL (1-3.4); LYMPHOCYTES % (AUTO) 29 % (22-44); MD NO; MEAN CORPUSCULAR HGB CONC 33.1 g/dL (32.4-35.8); MEAN CORPUSCULAR VOLUME 96.8 fL (80-100); MEAN PLATELET VOLUME 7.6 fL (7.4-10.4); MONOCYTES # (AUTO) 0.51 x10^3/uL (0.2-0.8); MONOCYTES % (AUTO) 6 % (2-9); NEUTROPHILS # (AUTO) 5.01 x10^3/uL (1.8-6.8); NEUTROPHILS % (AUTO) 63 % (42-75); PLATELET COUNT 240 x10^3/uL (130-400); RED BLOOD COUNT 3.77 x10^6/uL (3.82-5.3); RED CELL DISTRIBUTION WIDTH 12.7 % (9.6-15.2)
[2019-10-12] MEDS: AMANTADINE 100 MG CAPSULE PO SCH ×2 (09:11→22:03)
[2019-10-12] MEDS: FAMOTIDINE 20 MG TABLET PO SCH ×2 (09:11→22:03)
[2019-10-12] MEDS: DIVALPROEX 125 MG TABLET.DR PO SCH ×2 (09:11→17:15)
[2019-10-12] MEDS: METOPROLOL TARTRATE 25 MG TABLET PO SCH ×2 (09:11→22:03)
[2019-10-12] MEDS: D5%-0.45NACL+KCL 20MEQ 1,000 ML IV SCH (09:16)
[2019-10-12] MEDS ORDERED: DEXTROSE 50%, 50ML SYRINGE IVPush PRN (10:00)
[2019-10-12] MEDS ORDERED: DEXTROSE 4 GM TAB.CHEW PO PRN (10:00)
[2019-10-12] MEDS ORDERED: GLUCAGON 1 MG IM PRN (10:00)
[2019-10-12] MEDS ORDERED: POTASSIUM CHLORIDE 20 MEQ in SODIUM CHLORIDE 0.45% 1,000 ML IV SCH (10:30)
--- NOTE | 2019-10-12 10:32 | NUR ---
TG/ NTL -crush meds up at 90 Addendum: 10/12/19 at [address] Amended: Links added.
[2019-10-12] MEDS: INSULIN GLARGINE 100 UNITS/ML, PEN SQ-INSULIN SCH ×2 (11:03→22:04)
[2019-10-12] MEDS: SODIUM CHLORIDE FLUSH 10ML SYR IVF SCH ×2 (11:13→22:03)
[2019-10-12] MEDS: INSULIN LISPRO 100 UNITS/ML, PEN SQ-INSULIN SCH ×3 (11:44→22:05)
[2019-10-12] MEDS: LEVOFLOXACIN/PMX 500MG/100ML 100 ML IV SCH (15:01)
[2019-10-12 21:02] VITALS: BP 108/69
[2019-10-12] MEDS: VALPROATE SODIUM 250 MG/5 ML UDC PO SCH (22:31)
[2019-10-13 01:34] VITALS: BP 123/82
[2019-10-13 05:22] LABS: CALCIUM 8.6 mg/dL (8.5-10.1); CHLORIDE 109 mmol/L (98-107)
[2019-10-13 05:28] LABS: ALANINE AMINOTRANSFERASE 68 U/L (12-78); ALKALINE PHOSPHATASE 134 U/L (45-117); ANION GAP 8 mmol/L (5-15); BILIRUBIN, DIRECT < 0.1 mg/dL (0.1-0.2); BILIRUBIN,INDIRECT 0.3 mg/dL (0.0-2.0); BILIRUBIN,TOTAL 0.4 mg/dL (0.2-1.0); CREATININE 0.57 mg/dL (0.55-1.02); TOTAL PROTEIN 6.3 g/dL (6.4-8.2)
[2019-10-13 05:30] LABS: BASOPHILS # (AUTO) 0.04 x10^3/uL (0-0.1); BASOPHILS % (AUTO) 1 % (0-1); EOSINOPHILS # (AUTO) 0.22 x10^3/uL (0-0.4); EOSINOPHILS % (AUTO) 4 % (1-7); LYMPHOCYTES % (AUTO) 38 % (22-44); MD NO; MEAN CORPUSCULAR HEMOGLOBIN 32.4 pg (27.0-34.8); MEAN CORPUSCULAR HGB CONC 33.4 g/dL (32.4-35.8); MEAN CORPUSCULAR VOLUME 97.1 fL (80-100); MEAN PLATELET VOLUME 7.2 fL (7.4-10.4); MONOCYTES # (AUTO) 0.41 x10^3/uL (0.2-0.8); MONOCYTES % (AUTO) 7 % (2-9); NEUTROPHILS # (AUTO) 2.95 x10^3/uL (1.8-6.8); NEUTROPHILS % (AUTO) 51 % (42-75); PLATELET COUNT 184 x10^3/uL (130-400); RED BLOOD COUNT 3.56 x10^6/uL (3.82-5.3); RED CELL DISTRIBUTION WIDTH 12.4 % (9.6-15.2)
[2019-10-13] MEDS ORDERED: MAGNESIUM SULFATE PMX 2GM/50ML 50 ML IV ONE (07:30)
[2019-10-13 08:00] VITALS: BP 121/86
[2019-10-13] MEDS: INSULIN LISPRO 100 UNITS/ML, PEN SQ-INSULIN SCH ×4 (08:06→21:39)
[2019-10-13] MEDS ORDERED: INSULIN GLARGINE 100 UNITS/ML, PEN SQ-INSULIN SCH ×2 (09:00→21:00)
[2019-10-13] MEDS: VALPROATE SODIUM 250 MG/5 ML UDC PO SCH ×3 (09:21→21:40)
[2019-10-13] MEDS: POTASSIUM CHLORIDE 10% 20 MEQ/15 ML UDC PO SCH ×2 (09:21→17:06)
[2019-10-13] MEDS: SODIUM CHLORIDE FLUSH 10ML SYR IVF SCH ×2 (09:21→21:00)
[2019-10-13] MEDS: AMANTADINE 100 MG CAPSULE PO SCH ×2 (09:22→21:40)
[2019-10-13] MEDS: FAMOTIDINE 20 MG TABLET PO SCH ×2 (09:22→21:00)
[2019-10-13] MEDS: METOPROLOL TARTRATE 25 MG TABLET PO SCH ×2 (09:22→21:40)
[2019-10-13] MEDS: LEVOFLOXACIN/PMX 500MG/100ML 100 ML IV SCH (14:09)
[2019-10-13] MEDS ORDERED: ACETAMINOPHEN 325 MG TABLET PO PRN (14:30)
[2019-10-13] MEDS: IBUPROFEN 200 MG TABLET PO PRN ×2 (14:42→21:41)
[2019-10-13 15:33] VITALS: BP 113/77
--- NOTE | 2019-10-13 16:00 | NUR ---
REC GROUND/NTL; ORANGE SHEET WITH DIET REC AND SWALLOW STRATEGIES POSTED AT BEDSIDE. Addendum: 10/13/19 at 1602 by Breonna STYLES Amended: Links added.
[2019-10-13 19:02] VITALS: BP 118/81
[2019-10-13] MEDS ORDERED: FAMOTIDINE 40 MG TABLET ONE (21:25)
[2019-10-14 01:30] VITALS: BP 129/89
[2019-10-14 07:06] LABS: ANION GAP 7 mmol/L (5-15); CALCIUM 8.8 mg/dL (8.5-10.1); CHLORIDE 107 mmol/L (98-107); CREATININE 0.52 mg/dL (0.55-1.02)
[2019-10-14] MEDS: INSULIN LISPRO 100 UNITS/ML, PEN SQ-INSULIN SCH ×3 (07:40→16:31)
[2019-10-14 08:34] VITALS: BP 112/72
[2019-10-14] MEDS ORDERED: FAMOTIDINE 40 MG TABLET ONE ×2 (08:49→08:54)
[2019-10-14] MEDS: FAMOTIDINE 20 MG TABLET PO SCH (09:00)
[2019-10-14] MEDS: SODIUM CHLORIDE FLUSH 10ML SYR IVF SCH (09:06)
[2019-10-14] MEDS: METOPROLOL TARTRATE 25 MG TABLET PO SCH (09:07)
[2019-10-14] MEDS: VALPROATE SODIUM 250 MG/5 ML UDC PO SCH ×2 (09:07→16:30)
[2019-10-14] MEDS: AMANTADINE 100 MG CAPSULE PO SCH (09:08)
[2019-10-14] MEDS ORDERED: POTASSIUM CHLORIDE 20 MEQ TAB.ER.PRT PO ONE (11:00)
[2019-10-14] MEDS ORDERED: INSU100I13 SQ-INSULIN (14:06)
[2019-10-14] MEDS ORDERED: INSULIN GLARGINE 100 UNITS/ML, PEN SQ-INSULIN SCH ×2 (14:30→21:00)
[2019-10-14 15:17] VITALS: BP 119/88
== END 2019-10-14 19:00 | disposition home or self-care (01) | DRG 637 ==
LOC: ED 10:18 → ICU 10:19 → 3N 10-12 18:30
PROVIDERS: ADMIT Emergency Medicine; ATTEND Hospitalist
PROC: 02HV33Z Insertion of Infusion Device into Superior Vena Cava, Percutaneous Approach (ICD-10-PCS; principal; 2019-10-11)
PROC: B548ZZA Ultrasonography of Superior Vena Cava, Guidance (ICD-10-PCS; 2019-10-11)
DX: E10.10 Type 1 diabetes mellitus with ketoacidosis without coma (principal); N17.0 Acute kidney failure with tubular necrosis; G93.40 Encephalopathy, unspecified; Z99.11 Dependence on respirator [ventilator] status; E83.42 Hypomagnesemia; E83.52 Hypercalcemia; E87.5 Hyperkalemia; E87.6 Hypokalemia; G43.909 Migraine, unspecified, not intractable, without status migrainosus; R00.0 Tachycardia, unspecified; R13.10 Dysphagia, unspecified; Z79.4 Long term (current) use of insulin; Z86.19 Personal history of other infectious and parasitic diseases; Z87.01 Personal history of pneumonia (recurrent); Z87.891 Personal history of nicotine dependence; Z99.3 Dependence on wheelchair
CPT/HCPCS: 36415; 36573; 71045; 74230; 80048; 80053; 80076; 81001; 82010; 82570; 82803; 82947; 82962; 83036; 83605; 83690; 83735; 83880; 84100; 84145; 84300; 84443; 84484; 84703; 85025; 87040; 87081; 93005; 93306; 99285; G0378; J1644; J1815; J1956; J3480; C1751; J3475; J7030; J7050

== ENCOUNTER 2020-07-09 16:17 | Inpatient (IN) | payer MEDICAID ==
[~2020-07-09] VITALS: Ht 152.4 cm; Wt 49.9 kg
[~2020-07-09 16:17] MED LIST changes: +AMAN100C7 PO; +DIVA125T31 PO; +FAMO20TA7 PO; +INSU100I13 SQ-INSULIN; +LORA-445 PO; +METF-754 PO; -METF500T12 PO; +METO25TA35 PO; +QUET25TA7 PO
[2020-07-09] MEDS ORDERED: SODIUM CHLORIDE 0.9% 1,000ML IVBOLUS ONE ×2 (16:30→17:30)
[2020-07-09] MEDS ORDERED: SODIUM CHLORIDE FLUSH 10ML SYR IVF ONE (16:30)
[2020-07-09] MEDS ORDERED: SODIUM CHLORIDE 0.9% 1,000 ML IV ONE (16:30)
--- NOTE | 2020-07-09 16:45 | NUR ---
ASHANTI JEAN TO ASSUME CARE OF PATIENT AT THIS TIME. PATIENT MOVED TO TR03.
[2020-07-09] MEDS ORDERED: SODIUM CHLORIDE 0.9% 1,000 ML IV SCH (17:06)
[2020-07-09 17:18] LABS: ALBUMIN 3.3 g/dL (3.4-5.0); ANION GAP 37 mmol/L (5-15); CHLORIDE 91 mmol/L (98-107)
[2020-07-09 17:22] LABS: MD YES; MEAN CORPUSCULAR HEMOGLOBIN 31.6 pg (27.0-34.8); MEAN CORPUSCULAR HGB CONC 30.6 g/dL (32.4-35.8); MEAN CORPUSCULAR VOLUME 103.5 fL (80-100); MEAN PLATELET VOLUME 8.1 fL (7.4-10.4); PLATELET COUNT 640 x10^3/uL (130-400); RED BLOOD COUNT 4.06 x10^6/uL (3.82-5.3); RED CELL DISTRIBUTION WIDTH 14.8 % (9.6-15.2)
[2020-07-09 17:24] LABS: ALANINE AMINOTRANSFERASE 18 U/L (12-78); ALKALINE PHOSPHATASE 274 U/L (45-117); CREATININE 2.05 mg/dL (0.55-1.02)
[2020-07-09] MEDS ORDERED: ACETAMINOPHEN 325 MG TABLET PO PRN (17:30)
[2020-07-09] MEDS ORDERED: POLYETHYLENE GLYCOL 17 GM PACKET PO PRN (17:30)
[2020-07-09] MEDS ORDERED: BISACODYL 10 MG SUPP PR PRN (17:30)
[2020-07-09] MEDS ORDERED: ONDANSETRON 2MG/ML, 2ML IV PRN (17:30)
[2020-07-09] MEDS ORDERED: DOCUSATE 100 MG CAPSULE PO PRN (17:30)
[2020-07-09 17:35] LABS: BILIRUBIN,TOTAL 0.4 mg/dL (0.2-1.0)
[2020-07-09 17:39] LABS: FIO2 ROOM AIR %; O2 FLOW ROOM AIR L/min
[2020-07-09 17:42] LABS: ACETONE, SERUM Large (80mg/dL) (Negative)
[2020-07-09 17:45] LABS: <PLATELET ESTIMATE> INCREASED; <PLT MORPHOLOGY> NORMAL PLT MORPH; BAND#(MANUAL) 1.67 x10^3/uL; BANDS%(MANUAL) 5 % (0-7); LYMPHS% (MANUAL) 15 % (22-44); METAMYELOCYTES# (MANUAL) 0.33 x10^3/uL (0-0); METAMYELOCYTES% (MANUAL) 1 % (0-1); MONOS% (MANUAL) 3 % (2-9); SEG#(MANUAL) 25.31 x10^3/uL (1.8-6.8); SEGS% (MANUAL) 76 % (42-75)
[2020-07-09 17:58] LABS: MICROSCOPIC NOT IND
[2020-07-09] MEDS ORDERED: CEFTRIAXONE PMX 1GM/50ML 50 ML ONE ×2 (17:59→18:10)
[2020-07-09] MEDS ORDERED: SODIUM BICARB 8.4%, 50ML SYRINGE ONE ×2 (17:59→18:00)
[2020-07-09] MEDS ORDERED: VANCOMYCIN PER PHARMACY MC PRN (18:00)
[2020-07-09] MEDS ORDERED: CEFTRIAXONE PMX 1GM/50ML 50 ML IV ONE (18:00)
[2020-07-09] MEDS ORDERED: SODIUM BICARB 8.4%, 50ML SYRINGE IVPush ONE (18:00)
[2020-07-09 18:04] LABS: AMPHETAMINE SCREEN, URINE Negative (Negative); BARBITURATE SCREEN, URINE Negative (Negative); BENZODIAZEPINE SCREEN, URINE Negative (Negative); CANNABINOID SCREEN, URINE Negative (Negative); METHADONE SCREEN, URINE Negative (Negative); OPIATE SCREEN, URINE Negative (Negative)
[2020-07-09] MEDS: REGULAR INSULIN 100 UNITS in SODIUM CHLORIDE 0.9% 99 ML IV PRN ×2 (18:07→23:09)
[2020-07-09 18:10] LABS: COCAINE SCREEN, URINE Negative (Negative)
[2020-07-09] MEDS: MEROPENEM 1 GM in SODIUM CHLORIDE 0.9% 100 ML IV SCH (18:41)
[2020-07-09] MEDS ORDERED: D5%-0.45NACL+KCL 20MEQ 1,000 ML IV SCH (19:00)
[2020-07-09] MEDS ORDERED: HEPARIN 5,000 UNITS/ML, 1ML ONE (19:20)
[2020-07-09] MEDS: HEPARIN 5,000 UNITS/ML, 1ML SQ SCH (19:22)
--- NOTE | 2020-07-09 19:31 | NUR ---
875ml urinary cath output, clear yellow urine noted
--- NOTE | 2020-07-09 19:40 | NUR ---
ATTEMPTED TO CALL MOTHERGILMAR, AT GIVEN PHONE NUMBER OF [phone]. NO ANSWER. Addendum: 07/09/20 at 1940 by PETER [phone] IS MOTHER'S TELEPHONE NUMBER
--- NOTE | 2020-07-09 19:55 | NUR ---
PATIENT TANSPORTED TO FLOOR, BEDSIDE HANDOFF COMPLETED. NO FURTHER QUESTIONS NOTED.
[2020-07-09] MEDS ORDERED: PHARMACOKINETIC MONITORING MC PRN (20:30)
[2020-07-09] MEDS ORDERED: FAMOTIDINE 20 MG/2 ML IVPush SCH (21:00)
[2020-07-09] MEDS ORDERED: VANCOMYCIN 1,000 MG in SODIUM CHLORIDE 0.9% 100 ML IV ONE (21:00)
[2020-07-09 22:16] LABS: ANION GAP 28 mmol/L (5-15); CALCIUM 8.4 mg/dL (8.5-10.1); CHLORIDE 120 mmol/L (98-107); CREATININE 1.35 mg/dL (0.55-1.02)
[2020-07-09] MEDS ORDERED: SODIUM CHLORIDE 0.45% 1,000 ML IV SCH (23:00)
[2020-07-09] MEDS ORDERED: POTASSIUM CHLORIDE 40 MEQ in SODIUM CHLORIDE 0.9% 500 ML IV ONE (23:00)
[2020-07-09] MEDS ORDERED: NOREPINEPHRINE 8 MG in SODIUM CHLORIDE 0.9% 242 ML IV PRN (23:30)
[2020-07-10 01:37] LABS: ANION GAP 17 mmol/L (5-15); CHLORIDE 127 mmol/L (98-107); CREATININE 1.41 mg/dL (0.55-1.02)
[2020-07-10] MEDS: HEPARIN 5,000 UNITS/ML, 1ML SQ SCH ×3 (02:14→18:08)
[2020-07-10 03:26] VITALS: BP 86/53
[2020-07-10 03:36] LABS: ANION GAP 10 mmol/L (5-15); CALCIUM 8.8 mg/dL (8.5-10.1); CHLORIDE 130 mmol/L (98-107); CREATININE 1.34 mg/dL (0.55-1.02)
[2020-07-10] MEDS: MEROPENEM 1 GM in SODIUM CHLORIDE 0.9% 100 ML IV SCH ×3 (04:19→18:08)
[2020-07-10] MEDS ORDERED: POTASSIUM CHLORIDE 20 MEQ in DEXTROSE 5% 1,000 ML IV SCH (04:30)
[2020-07-10 05:09] LABS: CHLORIDE 130 mmol/L (98-107)
[2020-07-10 05:21] LABS: ANION GAP 9 mmol/L (5-15); CALCIUM 8.8 mg/dL (8.5-10.1); CREATININE 1.33 mg/dL (0.55-1.02)
[2020-07-10] MEDS: INSULIN LISPRO 100 UNITS/ML, PEN SQ-INSULIN SCH ×4 (08:00→20:31)
[2020-07-10] MEDS: INSULIN GLARGINE 100 UNITS/ML, PEN SQ-INSULIN SCH ×2 (08:10→20:31)
[2020-07-10 08:50] LABS: MEAN CORPUSCULAR HEMOGLOBIN 31.2 pg (27.0-34.8); MEAN CORPUSCULAR HGB CONC 32.8 g/dL (32.4-35.8); MEAN CORPUSCULAR VOLUME 95.1 fL (80-100); MEAN PLATELET VOLUME 7.3 fL (7.4-10.4); PLATELET COUNT 519 x10^3/uL (130-400); RED BLOOD COUNT 3.28 x10^6/uL (3.82-5.3); RED CELL DISTRIBUTION WIDTH 13.8 % (9.6-15.2)
[2020-07-10 09:29] LABS: MD YES
[2020-07-10 09:32] LABS: <PLATELET ESTIMATE> INCREASED; <PLT MORPHOLOGY> NORMAL PLT MORPH; BAND#(MANUAL) 0.53 x10^3/uL; BANDS%(MANUAL) 3 % (0-7); LYMPH#(MANUAL) 2.99 x10^3/uL (1-3.4); LYMPHS% (MANUAL) 17 % (22-44); MONOS#(MANUAL) 1.94 x10^3/uL (0.3-2.7); MONOS% (MANUAL) 11 % (2-9); SEG#(MANUAL) 12.14 x10^3/uL (1.8-6.8); SEGS% (MANUAL) 69 % (42-75)
[2020-07-10] MEDS: POTASSIUM CHLORIDE 20 MEQ in SODIUM CHLORIDE 0.45% 1,000 ML IV SCH ×2 (09:47→22:07)
[2020-07-10 16:16] VITALS: BP 119/86
[2020-07-11 00:47] VITALS: BP 109/68
[2020-07-11] MEDS: MEROPENEM 1 GM in SODIUM CHLORIDE 0.9% 100 ML IV SCH ×3 (02:08→20:07)
[2020-07-11] MEDS: HEPARIN 5,000 UNITS/ML, 1ML SQ SCH ×3 (02:08→16:06)
[2020-07-11 04:55] LABS: BASOPHILS # (AUTO) 0.19 x10^3/uL (0-0.1); BASOPHILS % (AUTO) 1 % (0-1); EOSINOPHILS # (AUTO) 0.04 x10^3/uL (0-0.4); EOSINOPHILS % (AUTO) 0 % (1-7); LYMPHOCYTES # (AUTO) 4.05 x10^3/uL (1-3.4); LYMPHOCYTES % (AUTO) 25 % (22-44); MD NO; MEAN CORPUSCULAR HEMOGLOBIN 31.1 pg (27.0-34.8); MEAN CORPUSCULAR HGB CONC 32.4 g/dL (32.4-35.8); MEAN PLATELET VOLUME 7.1 fL (7.4-10.4); MONOCYTES # (AUTO) 0.87 x10^3/uL (0.2-0.8); MONOCYTES % (AUTO) 5 % (2-9); NEUTROPHILS # (AUTO) 11.29 x10^3/uL (1.8-6.8); NEUTROPHILS % (AUTO) 69 % (42-75); PLATELET COUNT 431 x10^3/uL (130-400); RED BLOOD COUNT 3.42 x10^6/uL (3.82-5.3); RED CELL DISTRIBUTION WIDTH 14.4 % (9.6-15.2)
[2020-07-11 05:01] LABS: ALANINE AMINOTRANSFERASE 12 U/L (12-78); ALBUMIN 2.4 g/dL (3.4-5.0); ANION GAP 10 mmol/L (5-15); CALCIUM 8.7 mg/dL (8.5-10.1); CHLORIDE 113 mmol/L (98-107)
[2020-07-11 05:04] LABS: ALKALINE PHOSPHATASE 165 U/L (45-117); BILIRUBIN,TOTAL 0.3 mg/dL (0.2-1.0); CREATININE 0.81 mg/dL (0.55-1.02)
[2020-07-11 07:03] VITALS: BP 107/65
[2020-07-11] MEDS: INSULIN LISPRO 100 UNITS/ML, PEN SQ-INSULIN SCH ×4 (07:56→21:29)
[2020-07-11] MEDS: INSULIN GLARGINE 100 UNITS/ML, PEN SQ-INSULIN SCH ×2 (07:56→21:29)
[2020-07-11 13:48] VITALS: BP 100/67
[2020-07-11 18:18] VITALS: BP 106/76
[2020-07-11] MEDS ORDERED: IBUPROFEN 600 MG TABLET ONE (18:23)
[2020-07-11] MEDS: IBUPROFEN 600 MG TABLET PO PRN (18:24)
[2020-07-12 00:47] VITALS: BP 109/72
[2020-07-12] MEDS: HEPARIN 5,000 UNITS/ML, 1ML SQ SCH ×2 (01:12→09:01)
[2020-07-12] MEDS: MEROPENEM 1 GM in SODIUM CHLORIDE 0.9% 100 ML IV SCH ×3 (04:00→20:57)
[2020-07-12 05:03] LABS: BASOPHILS # (AUTO) 0.14 x10^3/uL (0-0.1); BASOPHILS % (AUTO) 2 % (0-1); EOSINOPHILS # (AUTO) 0.03 x10^3/uL (0-0.4); EOSINOPHILS % (AUTO) 0 % (1-7); LYMPHOCYTES # (AUTO) 2.69 x10^3/uL (1-3.4); LYMPHOCYTES % (AUTO) 41 % (22-44); MD NO; MEAN CORPUSCULAR HEMOGLOBIN 31.3 pg (27.0-34.8); MEAN CORPUSCULAR HGB CONC 32.8 g/dL (32.4-35.8); MEAN CORPUSCULAR VOLUME 95.2 fL (80-100); MONOCYTES # (AUTO) 0.39 x10^3/uL (0.2-0.8); MONOCYTES % (AUTO) 6 % (2-9); NEUTROPHILS % (AUTO) 50 % (42-75); PLATELET COUNT 381 x10^3/uL (130-400); RED BLOOD COUNT 3.29 x10^6/uL (3.82-5.3); RED CELL DISTRIBUTION WIDTH 14.1 % (9.6-15.2)
[2020-07-12 05:17] LABS: CHLORIDE 99 mmol/L (98-107)
[2020-07-12 05:33] LABS: ANION GAP 10 mmol/L (5-15); CALCIUM 8.5 mg/dL (8.5-10.1)
[2020-07-12] MEDS ORDERED: MAGNESIUM SULFATE PMX 2GM/50ML 50 ML IV ONE (06:30)
[2020-07-12 08:34] VITALS: BP 111/76
[2020-07-12] MEDS: POTASSIUM CHLORIDE 20 MEQ TAB.ER.PRT PO SCH ×2 (09:00→16:12)
[2020-07-12] MEDS: INSULIN LISPRO 100 UNITS/ML, PEN SQ-INSULIN SCH ×4 (09:10→20:56)
[2020-07-12] MEDS: INSULIN GLARGINE 100 UNITS/ML, PEN SQ-INSULIN SCH ×2 (09:11→20:57)
[2020-07-12 14:06] VITALS: BP 103/68
[2020-07-12] MEDS: ENOXAPARIN 40 MG/0.4 ML SQ SCH (16:12)
[2020-07-12] MEDS: IBUPROFEN 600 MG TABLET PO PRN (16:24)
[2020-07-12 17:30] VITALS: BP 112/80
[2020-07-12 18:39] VITALS: BP 93/62
[2020-07-13 00:13] VITALS: BP 104/67
[2020-07-13] MEDS: MEROPENEM 1 GM in SODIUM CHLORIDE 0.9% 100 ML IV SCH ×3 (04:57→21:53)
[2020-07-13 05:11] LABS: MEAN CORPUSCULAR HEMOGLOBIN 31.5 pg (27.0-34.8); MEAN CORPUSCULAR HGB CONC 33.2 g/dL (32.4-35.8); MEAN CORPUSCULAR VOLUME 94.9 fL (80-100); MEAN PLATELET VOLUME 7.2 fL (7.4-10.4); PLATELET COUNT 329 x10^3/uL (130-400); RED BLOOD COUNT 3.58 x10^6/uL (3.82-5.3); RED CELL DISTRIBUTION WIDTH 13.4 % (9.6-15.2)
[2020-07-13 05:17] LABS: ANION GAP 7 mmol/L (5-15); CALCIUM 8.5 mg/dL (8.5-10.1); CHLORIDE 104 mmol/L (98-107); CREATININE 0.52 mg/dL (0.55-1.02)
[2020-07-13 06:02] LABS: MD YES
[2020-07-13 06:05] LABS: <PLATELET ESTIMATE> ADEQUATE; <PLT MORPHOLOGY> NORMAL PLT MORPH; <RBC MORPHOLOGY> NORMAL; BAND#(MANUAL) 0.07 x10^3/uL; BANDS%(MANUAL) 1 % (0-7); BASOS#(MANUAL) 0.07 x10^3/uL (0-0.1); BASOS% (MANUAL) 1 % (0-1); LYMPH#(MANUAL) 3.59 x10^3/uL (1-3.4); LYMPHS% (MANUAL) 52 % (22-44); MONOS#(MANUAL) 0.41 x10^3/uL (0.3-2.7); MONOS% (MANUAL) 6 % (2-9); SEG#(MANUAL) 2.76 x10^3/uL (1.8-6.8); SEGS% (MANUAL) 40 % (42-75)
[2020-07-13 07:10] VITALS: BP 96/54
[2020-07-13] MEDS: INSULIN LISPRO 100 UNITS/ML, PEN SQ-INSULIN SCH ×3 (07:26→17:26)
[2020-07-13] MEDS: INSULIN GLARGINE 100 UNITS/ML, PEN SQ-INSULIN SCH (08:56)
[2020-07-13 13:00] VITALS: BP 106/72
[2020-07-13] MEDS: ENOXAPARIN 40 MG/0.4 ML SQ SCH (17:10)
[2020-07-13] MEDS ORDERED: LACTATED RINGERS 1,000 ML IVBOLUS ONE (18:30)
[2020-07-13] MEDS ORDERED: INSULIN REGULAR 100 UNITS/ML, 3ML VIAL IVPush ONE (18:30)
[2020-07-13 20:00] VITALS: BP 102/67
[2020-07-14] MEDS: INSULIN GLARGINE 100 UNITS/ML, PEN SQ-INSULIN SCH ×2 (00:01→10:33)
[2020-07-14] MEDS: INSULIN LISPRO 100 UNITS/ML, PEN SQ-INSULIN SCH ×3 (00:02→11:09)
[2020-07-14 00:07] VITALS: BP 104/67
[2020-07-14] MEDS: MEROPENEM 1 GM in SODIUM CHLORIDE 0.9% 100 ML IV SCH ×2 (05:19→11:10)
[2020-07-14 07:21] LABS: BASOPHILS # (AUTO) 0.03 x10^3/uL (0-0.1); BASOPHILS % (AUTO) 1 % (0-1); EOSINOPHILS # (AUTO) 0.06 x10^3/uL (0-0.4); EOSINOPHILS % (AUTO) 1 % (1-7); LYMPHOCYTES # (AUTO) 2.08 x10^3/uL (1-3.4); LYMPHOCYTES % (AUTO) 42 % (22-44); MD NO; MEAN CORPUSCULAR HEMOGLOBIN 31.2 pg (27.0-34.8); MEAN CORPUSCULAR HGB CONC 33.4 g/dL (32.4-35.8); MEAN CORPUSCULAR VOLUME 93.4 fL (80-100); MEAN PLATELET VOLUME 6.8 fL (7.4-10.4); MONOCYTES # (AUTO) 0.37 x10^3/uL (0.2-0.8); MONOCYTES % (AUTO) 7 % (2-9); NEUTROPHILS # (AUTO) 2.41 x10^3/uL (1.8-6.8); NEUTROPHILS % (AUTO) 49 % (42-75); PLATELET COUNT 404 x10^3/uL (130-400); RED BLOOD COUNT 3.59 x10^6/uL (3.82-5.3); RED CELL DISTRIBUTION WIDTH 13.4 % (9.6-15.2)
[2020-07-14 07:25] LABS: ANION GAP 8 mmol/L (5-15); CALCIUM 8.5 mg/dL (8.5-10.1); CHLORIDE 102 mmol/L (98-107); CREATININE 0.62 mg/dL (0.55-1.02)
[2020-07-14 07:52] VITALS: BP 114/77
[2020-07-14] MEDS ORDERED: INSU100I11 SQ-INSULIN (08:22)
[2020-07-14] MEDS ORDERED: INSULIN REGULAR 100 UNITS/ML, 3ML VIAL SQ-INSULIN ONE ×2 (12:08→14:00)
[2020-07-14 12:36] VITALS: BP 120/83
== END 2020-07-14 17:56 | disposition home or self-care (01) | DRG 871 ==
LOC: ED 16:58 → EDIP 17:06 → CCU 19:49 → 3N 07-10 16:06
PROVIDERS: ADMIT Internal Medicine; ATTEND Hospitalist
PROC: 0T9B70Z Drainage of Bladder with Drainage Device, Via Natural or Artificial Opening (ICD-10-PCS; principal; 2020-07-09)
DX: A41.9 Sepsis, unspecified organism (principal); E10.11 Type 1 diabetes mellitus with ketoacidosis with coma; G93.41 Metabolic encephalopathy; J96.00 Acute respiratory failure, unspecified whether with hypoxia or hypercapnia; J15.6 Pneumonia due to other Gram-negative bacteria; N17.0 Acute kidney failure with tubular necrosis; S22.49XA Multiple fractures of ribs, unspecified side, initial encounter for closed fracture; E87.0 Hyperosmolality and hypernatremia; Z99.11 Dependence on respirator [ventilator] status; D64.9 Anemia, unspecified; E87.5 Hyperkalemia; F32.9 Major depressive disorder, single episode, unspecified; G43.909 Migraine, unspecified, not intractable, without status migrainosus; I10 Essential (primary) hypertension; Z79.899 Other long term (current) drug therapy; Z87.820 Personal history of traumatic brain injury; Z87.891 Personal history of nicotine dependence; Z72.89 Other problems related to lifestyle
CPT/HCPCS: 36415; 36600; 99291; J3490; 70450; 71045; 71046; 76700; 80048; 80053; 80307; 81003; 82010; 82800; 82803; 82947; 82962; 83036; 83605; 83690; 83735; 84100; 84443; 84703; 85025; 87040; 87081; 93005; G0378; J0696; J1644; J1650; J1815; J2185; J3370; J3480; J7070; J3475; J7030; J7040; J7050; J7120

== ENCOUNTER 2020-07-16 15:14 | Emergency (ER) | payer MEDICAID ==
[~2020-07-16] VITALS: Ht 157.5 cm; Wt 50.0 kg
[~2020-07-16 15:14] MED LIST changes: +INSU100I11 SQ-INSULIN
[2020-07-16] MEDS ORDERED: SODIUM CHLORIDE 0.9% 1,000ML IVBOLUS ONE ×2 (15:30)
[2020-07-16] MEDS ORDERED: PLEASE ENTER HEIGHT AND WEIGHT MC SCH (15:30)
[2020-07-16] MEDS ORDERED: ONDANSETRON 2MG/ML, 2ML IM ONE (15:30)
[2020-07-16 15:36] LABS: PH, VENOUS 7.305 pH (7.320-7.420)
[2020-07-16 15:45] LABS: MEAN CORPUSCULAR HEMOGLOBIN 31.5 pg (27.0-34.8); MEAN CORPUSCULAR HGB CONC 33.1 g/dL (32.4-35.8); MEAN PLATELET VOLUME 6.9 fL (7.4-10.4); PLATELET COUNT 538 x10^3/uL (130-400); RED BLOOD COUNT 4.09 x10^6/uL (3.82-5.3); RED CELL DISTRIBUTION WIDTH 13.8 % (9.6-15.2)
[2020-07-16 15:49] LABS: ALANINE AMINOTRANSFERASE 40 U/L (12-78); ALBUMIN 3.3 g/dL (3.4-5.0); ANION GAP 16 mmol/L (5-15); CALCIUM 9.1 mg/dL (8.5-10.1); CHLORIDE 100 mmol/L (98-107); CREATININE 1.14 mg/dL (0.55-1.02)
[2020-07-16 15:51] LABS: ALKALINE PHOSPHATASE 207 U/L (45-117); BILIRUBIN,TOTAL 0.5 mg/dL (0.2-1.0); TOTAL PROTEIN 8.2 g/dL (6.4-8.2)
[2020-07-16 16:04] LABS: BASOPHILS # (AUTO) 0.05 x10^3/uL (0-0.1); BASOPHILS % (AUTO) 1 % (0-1); EOSINOPHILS # (AUTO) 0.02 x10^3/uL (0-0.4); EOSINOPHILS % (AUTO) 0 % (1-7); LYMPHOCYTES # (AUTO) 2.82 x10^3/uL (1-3.4); LYMPHOCYTES % (AUTO) 42 % (22-44); MD SCAN; MONOCYTES # (AUTO) 0.46 x10^3/uL (0.2-0.8); MONOCYTES % (AUTO) 7 % (2-9); NEUTROPHILS # (AUTO) 3.41 x10^3/uL (1.8-6.8); NEUTROPHILS % (AUTO) 50 % (42-75)
[2020-07-16 16:07] LABS: ACETONE, SERUM Large (80mg/dL) (Negative)
[2020-07-16] MEDS ORDERED: ONDANSETRON 2MG/ML, 2ML ONE (16:09)
--- NOTE | 2020-07-16 16:57 | NUR ---
PT RESTING IN BED, PT ON MONITOR AND PT DENIED ANY CURRENT NEEDS OR WANTS. RN WILL CONTINUE TO MONITOR
[2020-07-16 18:44] LABS: MICROSCOPIC NOT IND
--- NOTE | 2020-07-16 18:46 | NUR ---
PT RESTING IN BED, PT ON MONITOR AND PT DENIED ANY CURRENT NEEDS OR WANTS. RN WILL CONTINUE TO MONITOR. PT UNSTEADY ON FEET. RECOMENED 2 PERSON ASSIST TO BEDSIDE BATHROOM
--- NOTE | 2020-07-16 18:57 | NUR ---
REPORT TO LUIS A BURRELL
[2020-07-16 19:14] VITALS: BP 106/68
== END 2020-07-16 19:17 | disposition home or self-care (01) ==
LOC: ED 19:10
DX: E11.65 Type 2 diabetes mellitus with hyperglycemia (principal); R11.0 Nausea; I95.9 Hypotension, unspecified; I10 Essential (primary) hypertension; R06.02 Shortness of breath; G43.909 Migraine, unspecified, not intractable, without status migrainosus; Z76.0 Encounter for issue of repeat prescription
CPT/HCPCS: 36415; 71045; 80053; 81003; 82010; 82803; 82962; 83930; 85025; 93005; 96360; 96361; 96372; 99285; J2405; J7030